=== PATIENT | male | born 1940 | race Caucasian/White ===

== ENCOUNTER → 2019-12-23 08:54 | Outpatient (BNVA) | payer MEDICARE, SELFPAY | PROVIDERS: PCP Internal Medicine; Visit Provider Urology | DX: Z76.89 Persons encountering health services in other specified circumstances (principal) | CPT/HCPCS: 99212 ==

== ENCOUNTER → 2020-03-29 08:26 | Outpatient (BNVA) | payer MEDICARE, SELFPAY | PROVIDERS: PCP Internal Medicine; Visit Provider Urology | DX: C61 Malignant neoplasm of prostate (principal); C79.51 Secondary malignant neoplasm of bone; M81.8 Other osteoporosis without current pathological fracture; T38.7X5A Adverse effect of androgens and anabolic congeners, initial encounter; Z79.899 Other long term (current) drug therapy | CPT/HCPCS: 96402; 99212; J0897; J9217 ==

== ENCOUNTER → 2020-06-28 08:33 | Outpatient (BNVA) | payer MEDICARE, SELFPAY | PROVIDERS: PCP Internal Medicine; Visit Provider Urology | DX: C61 Malignant neoplasm of prostate (principal); C79.51 Secondary malignant neoplasm of bone | CPT/HCPCS: 99212 ==

== ENCOUNTER → 2020-10-27 08:49 | Outpatient (BNVA) | payer MEDICARE, SELFPAY | PROVIDERS: PCP Internal Medicine; Visit Provider Urology | DX: C61 Malignant neoplasm of prostate (principal); C79.51 Secondary malignant neoplasm of bone; R97.21 Rising PSA following treatment for malignant neoplasm of prostate; I10 Essential (primary) hypertension; N30.40 Irradiation cystitis without hematuria; Z79.899 Other long term (current) drug therapy | CPT/HCPCS: 96372; 96402; 99212; J0897; J9217 ==

== ENCOUNTER → 2021-02-02 08:36 | Outpatient (BNVA) | payer MEDICARE, SELFPAY | PROVIDERS: PCP Internal Medicine; Visit Provider Urology | DX: R97.21 Rising PSA following treatment for malignant neoplasm of prostate (principal); M81.8 Other osteoporosis without current pathological fracture; C61 Malignant neoplasm of prostate; C79.51 Secondary malignant neoplasm of bone; T38.7X5D Adverse effect of androgens and anabolic congeners, subsequent encounter | CPT/HCPCS: Q3014 ==

== ENCOUNTER → 2021-05-04 10:02 | Outpatient (BNVA) | payer MEDICARE, SELFPAY | PROVIDERS: PCP Internal Medicine; Visit Provider Urology | DX: C61 Malignant neoplasm of prostate (principal); C79.51 Secondary malignant neoplasm of bone; M81.8 Other osteoporosis without current pathological fracture; T38.7X5A Adverse effect of androgens and anabolic congeners, initial encounter; R97.21 Rising PSA following treatment for malignant neoplasm of prostate | CPT/HCPCS: Q3014 ==

== ENCOUNTER → 2021-05-09 09:22 | Outpatient (BNVA) | payer MEDICARE, SELFPAY | PROVIDERS: PCP Internal Medicine; Visit Provider Urology | DX: C61 Malignant neoplasm of prostate (principal); C79.51 Secondary malignant neoplasm of bone | CPT/HCPCS: 96372; 96402; J0897; J9217 ==

== ENCOUNTER → 2021-07-13 10:15 | Outpatient (BNVA) | payer MEDICARE, SELFPAY | PROVIDERS: PCP Internal Medicine; Visit Provider Urology | DX: R33.9 Retention of urine, unspecified (principal) | CPT/HCPCS: 51700; 51798 ==

== ENCOUNTER → 2021-08-01 15:08 | Outpatient (BNVA) | payer MEDICARE, SELFPAY | PROVIDERS: PCP Internal Medicine; Visit Provider Urology | DX: R33.9 Retention of urine, unspecified (principal); R97.21 Rising PSA following treatment for malignant neoplasm of prostate; M81.8 Other osteoporosis without current pathological fracture; T38.7X5D Adverse effect of androgens and anabolic congeners, subsequent encounter | CPT/HCPCS: 99212 ==

== ENCOUNTER → 2021-10-27 09:00 | Outpatient (BNVA) | payer MEDICARE, SELFPAY | PROVIDERS: PCP Internal Medicine; Visit Provider Urology | DX: C61 Malignant neoplasm of prostate (principal); C79.51 Secondary malignant neoplasm of bone; R97.21 Rising PSA following treatment for malignant neoplasm of prostate; N52.9 Male erectile dysfunction, unspecified; R23.2 Flushing | CPT/HCPCS: 99212 ==

== ENCOUNTER → 2022-01-30 13:42 | Outpatient (BNVA) | payer MEDICARE, SELFPAY | PROVIDERS: PCP Internal Medicine; Visit Provider Urology | DX: C61 Malignant neoplasm of prostate (principal); M81.8 Other osteoporosis without current pathological fracture; T38.7X5A Adverse effect of androgens and anabolic congeners, initial encounter | CPT/HCPCS: 99212 ==

== ENCOUNTER → 2022-02-13 08:44 | Outpatient (BNVA) | payer MEDICARE, SELFPAY | PROVIDERS: PCP Internal Medicine; Visit Provider Urology | DX: C61 Malignant neoplasm of prostate (principal); C79.51 Secondary malignant neoplasm of bone; M81.8 Other osteoporosis without current pathological fracture; T38.7X5A Adverse effect of androgens and anabolic congeners, initial encounter | CPT/HCPCS: 96372; 96402; J0897; J9217 ==

== ENCOUNTER → 2022-05-04 11:13 | Outpatient (BNVA) | payer MEDICARE, SELFPAY | PROVIDERS: PCP Internal Medicine; Visit Provider Urology | DX: R97.21 Rising PSA following treatment for malignant neoplasm of prostate (principal); C61 Malignant neoplasm of prostate; C79.51 Secondary malignant neoplasm of bone; M81.8 Other osteoporosis without current pathological fracture; T38.7X5D Adverse effect of androgens and anabolic congeners, subsequent encounter | CPT/HCPCS: Q3014 ==

== ENCOUNTER → 2022-08-07 09:01 | Outpatient (BNVA) | payer MEDICARE, SELFPAY | PROVIDERS: PCP Internal Medicine; Visit Provider Urology | DX: C61 Malignant neoplasm of prostate (principal); C79.51 Secondary malignant neoplasm of bone; M81.8 Other osteoporosis without current pathological fracture; T38.7X5A Adverse effect of androgens and anabolic congeners, initial encounter | CPT/HCPCS: 96372; 99212; J0897 ==

== ENCOUNTER 2022-11-06 12:53 | Outpatient (AMB) | payer MEDICARE, SELFPAY ==
--- NOTE | 2022-11-06 12:55 | MHC.OFFVIS ---
Intake Intake Visit Reasons: 3M PSA/Testo(set)has catheter Intake Note: Patient is present for Telephone labs Urology Med: Abiraterone, Finasteride, Antibiotic Allergy: None Blood Thinner: Eliquis [facility]: [facility] Patient currently has thomas catheter needs a 2 week voiding trial Allergies No Known Allergies [No Known Allergies*] Allergy (Verified 11/06/22 12:57) Medication List - Last Reconciled 11/06/22 by Angel Huitron MD abiraterone 1,000 mg (2 x 500 mg) PO DAILY 30 days abiraterone 1,000 mg (2 x 500 mg) PO DAILY 30 days amiodarone 200 mg PO DAILY amlodipine 5 mg PO DAILY apixaban (Eliquis) 2.5 mg PO BID atorvastatin 20 mg PO DAILY ciprofloxacin HCl 500 mg PO BID 7 days finasteride 5 mg PO DAILY finasteride 5 mg PO DAILY 90 days magnesium oxide 400 mg PO DAILY metoprolol succinate ER 25 mg PO DAILY pantoprazole 40 mg PO BID potassium chloride ER 20 mEq PO DAILY potassium chloride ER 10 mEq PO DAILY prednisone 5 mg PO BID 30 days tranexamic acid 650 mg PO BID 7 days HPI HPI Comments History of Present Illness Details Karel Rouse is a very pleasant male. He is a patient of Dr Garcia. 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 Telemedicine Evaluation 15 min Consultation [facility] Video attempted Has thomas catheter in place Placed 02 November at [facility] 11/07 PSA 407 T 15 - current therapy GnRH with abiraterone and prednisone 08/07 PSA 164 T <7 - did not have imaging 05/10 PSA 57 T low 02/06 PET-CT Evidence of metastatic disease within pelvis on melba disease - Question of left supraclavicular node PSA 46 testosterone 7 indicating 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 The [place] grade is 4+3 = 7 - 12/12 cores with 100% of most cores. TNM Classification of Malignant Tumours (TNM) T3a. The [place] (NCCN) risk category is High Risk (PSA > 20, Gl 8+, T3). Initial therapy included 2/[address] Lombardo at [facility], hormonal therapy the past 2 years Additional treatment, Hormone break 09/30 + finasteride, antiandrogen Additional treatment 01/31 restart 3m [facility] - prolia/lupron 3m - persistent PSA so started Xtandi (dropped bicalutamide) 08/01 3m lupron, 6m Prolia, 11/01 3m lupron, 02/01 prolia - 3m GnRH, Xtandi 2tabs a day 05/05 , 5AR, xtandi 2x, defer GnRH, 09/02 prolia - 3m GnRH, Xtandi 2tabs a day, 5AR, 12/03 3m GnRH, 5AR, prolia, 03/04 3m GnRH, 5AR, Xtandi 2tabs 06/03 3m GnRH, Prolia - Xtandi 3 tabs, 09/03 3m GnRH, Xtandi 3 tabs, 12/04 3 months GnRH, Prolia, Xtandi 3 tabs, 03/05 3m GnRH, Xtandi 3 tabs 09/04 3m GnRH, prolia and xtandi - 04/07 6m GnRH prolia and xtandi, 11/05 GnRH - switched to Zytiga Recent labs included a PSA (prostate-specific antigen) November 2014 0.6, 09/30 4.7, 12/31 9.0 Testosterone 09/30 22, 12/31 78, April 2016 PSA 9, testosterone 48 08/01 PSA 3.6, T 46 11/01 PSA 3.7, T 41 02/01 , a testosterone 56, , a PSA (prostate-specific antigen) 1.8 05/05 , a PSA (prostate-specific antigen) 2.4, , a testosterone 34, 08/02 , a PSA (prostate-specific antigen) 2.6, , a testosterone 50, 12/03 , a PSA (prostate-specific antigen) 2.4, , a testosterone 50, 03/04 , a PSA (prostate-specific antigen) 3.2 06/03 PSA 5.4, T 22, 09/03 PSA 9.3, T 20, 10/03 PSA 9.9 T 18, 12/04 12.3 T 15 Alk Phos 10.3, 03/05 PSA 15 T 20 4 PSA 15 T 25, 09/04 PSA 20 T 15. - 04/07 PSA 26, T 22, 07/06 PSA 32 T 14, 11/05 PSA 41, 02/05 PSA 47, 04/08 51, 01/06 46, 05/10 PSA 57 T <7 Recent imaging included Bone scan 06/28 Negative, 01/31 New uptake on sixth rib [facility] a DEXA scan 12/31 showing osteopenia/osteoporosis CT 01/31 Normal 08/01 , a bone scan stable lesion - rib, 02/01 , a bone scan stable 09/02 , a bone scan, showing bony lesion(s), stable 06/03 , a bone scan, stable small bony lesion rib left sixth rib, 09/03 , a DEXA scan - Z=-1.4 - osteopenia 06/04 , a bone scan, stable, minimal metastatic lesions - 09/05 bone scan normal - 01/06 PET-CT with metastatic disease in pelvis plus ribs and lymph node clavicular Therapeutic plan: Lab work in 3 months [facility] Medical History Acute cystitis with hematuria Bone metastases HTN (hypertension) Osteoporosis Radiation cystitis Surgical History History of prostate biopsy Family History Father Prostate cancer Mother Cancer Social History Patient Tobacco Use Status: Never used Tobacco Review of Systems Const All systems reviewed & are unremarkable except as noted in HPI and below Reports no additional complaints Resp Reports no additional complaints GI Reports no additional complaints Reports as per HPI Musc Reports no additional complaints Physical Exam Telemedicine evaluation Appropriate responses Regular breathing rate and rhythm HEENT Head: Yes normal to inspection Ears: hearing grossly normal bilaterally Eyes General: appearance normal, both eyes and all related structures Neck Neck: Yes normal visual inspection Chest Chest palpation & inspection: normal inspection of the chest Resp Effort & Inspection: normal respiratory effort and able to speak in complete sentences Assessment & Plan Assessment & Plan (1) Urinary retention with incomplete bladder emptying: Code(s): R33.9 - Retention of urine, unspecified (2) Rising PSA following treatment for malignant neoplasm of prostate: Code(s): R97.21 - Rising PSA following treatment for malignant neoplasm of prostate Plan Voiding trial November 16 Patient Instructions: Imaging studies, laboratory and physical exam results were discussed and reviewed in detail. No major barriers to patient understanding were identified. An opportunity to ask questions regarding the treatment plan was provided. All questions were answered. The patient expressed understanding and agreement with the above treatment plan. The patient is aware they should contact our office by phone for worsening of their current condition or the appearance of new urologic symptoms. Compliance is encouraged with any medications and followup testing that is ordered. It is a privilege to participate in the urologic care of your patient. If you have any questions or concerns regarding treatment for the above conditions, or other urologic issues, please do not hesitate to contact me. The office telephone contact is [phone]. This note is constructed using voice recognition software. While every effort has been made to ensure accuracy balance bridge assembler errors may have been included. Yours sincerely, Dr Angel Huitron MD, [facility] - Urology Providers of Expert, Compassionate Care for the Genitourinary System Telehealth Telehealth Location of provider rendering services: practice address Location of patient: address on file Patient Identification confirmed using: Name, : Yes Telehealth method: voice only Patient verbally consented to treatment: Yes Patient verbally consented to billing insurance company: Yes Patient informed of any privacy concerns related to visit: Yes Coding Level of Care Code Tele Est Pt Level 3 (04778) Diagnoses Urinary retention with incomplete bladder emptying R33.9 Rising PSA following treatment for malignant neoplasm of prostate R97.21
== END 2022-11-06 14:05 | disposition home or self-care (01) ==
LOC: HO.HUSH 12:54
PROVIDERS: PCP Internal Medicine; Visit Provider Urology
DX: R33.9 Retention of urine, unspecified (principal); R97.21 Rising PSA following treatment for malignant neoplasm of prostate
CPT/HCPCS: 99442

== ENCOUNTER → 2022-11-06 12:53 | Outpatient (BNVA) | payer MEDICARE, SELFPAY | PROVIDERS: PCP Internal Medicine; Visit Provider Urology ==

== ENCOUNTER 2022-11-12 09:06 | Outpatient (AMB) | payer MEDICARE, SELFPAY ==
--- NOTE | 2022-11-12 09:20 | AM.OFFVISNUR ---
Intake Intake Visit Reasons: cath check Allergies No Known Allergies [No Known Allergies*] Allergy (Verified 11/06/22 12:57) Office Procedures Bladder/Catheter Procedure Details: pt presents to office for voiding trial after catheter accidentally was pulled - unable to instill fluid into bladder 18 fr coude cath w 10 ml balloon removed, pt tolerated removal well. pt able to urinate into urinal 140 mls tea colored urine. PVR 200 mls- per pt request pt will be going home to attempt emptying bladder and will increase fluids today, will call office by 2 pm to report how much has urinated and is aware may need to return for PVR and possible thomas replacement. urinal given to measure output. [id number] of Bladder Procedure code (CPT) selection complete Post Void Residual Post Residual Void Post Void Residual (PVR): 200 [id number] Void Residual by ultrasound Coding Diagnoses CPT Codes Bladder/Catheter Procedure - CPT: 19572-Rxgfqelzgx of Bladder ([id number]) Post Residual Void - PVR CPT Code: 92350-Cetk Void Residual by ultrasound ([id number]) Assessment & Plan Assessment & Plan Orders: Orders AMB Bladder/Catheter Procedure Today R33.9 - Retention of urine, unspecified AMB Post Void Residual by ultrasound Today R33.9 - Retention of urine, unspecified
== END 2022-11-12 09:41 | disposition home or self-care (01) ==
LOC: HO.HUSH 09:06
PROVIDERS: PCP Internal Medicine; Visit Provider Urology
DX: R33.9 Retention of urine, unspecified (principal)

== ENCOUNTER → 2022-11-12 09:06 | Outpatient (BNVA) | payer MEDICARE, SELFPAY | PROVIDERS: PCP Internal Medicine; Visit Provider Urology | DX: Z46.6 Encounter for fitting and adjustment of urinary device (principal) | CPT/HCPCS: 51700; 51702; 51798 ==

== ENCOUNTER → 2022-11-27 08:48 | Outpatient (BNVA) | payer MEDICARE, SELFPAY | PROVIDERS: PCP Internal Medicine; Visit Provider Urology | DX: R33.9 Retention of urine, unspecified (principal) | CPT/HCPCS: 51700; 51798 ==